=== PATIENT | female | born 1965 | race Caucasian/White ===

== ENCOUNTER → 2017-12-15 16:02 | Outpatient (CLI) | payer MEDICARE, MEDICAID | END | disposition home or self-care (01) | LOC: D.RAD 16:02 | DX: M25.512 Pain in left shoulder (principal) ==

== ENCOUNTER → 2017-12-22 13:43 | Outpatient (CLI) | payer MEDICARE | END | disposition home or self-care (01) | LOC: D.MRI 13:30 | DX: M25.512 Pain in left shoulder (principal) ==

== ENCOUNTER 2018-04-14 07:00 | Day surgery (SDC) | payer MEDICARE ==
[2018-04-13 14:48] LABS: HEMATOCRIT 41.6 % (36.0-48.0); HEMOGLOBIN 13.8 g/dL (12-16); MCH 32.2 pg (26.0-34.0); MCHC 33.2 g/dL (31.0-37.0); MCV 97.2 fL (80.0-100.0); MEAN PLATELET VOLUME 9.3 fL (7.4-10.4); RBC 4.28 10x6/uL (4.00-5.40); RDW 13.3 % (11.5-14.5); WBC 10.4 10x3/uL (4.8-10.8)
[~2018-04-14] VITALS: Ht 160 cm; Wt 63.5 kg
--- NOTE | ~2018-04-14 | OP ---
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 POSTOPERATIVE DIAGNOSES: Impingement syndrome of the right shoulder with acromioclavicular arthritis. PROCEDURES: 1. Right shoulder arthroscopy with arthroscopic distal clavicle excision done through separate incision -- 1 cm. 2. Arthroscopic subacromial decompression with acromioplasty and bursectomy. SURGEON: Beni Mishra MD ANESTHESIA: General. INTRAOPERATIVE COMPLICATIONS: None. SUMMARY OF PATHOLOGIC FINDINGS: The patient has moderate biceps tendinitis; however, the tendon itself was completely intact and I did not find a just cause to do a tenodesis or tenotomy. The patient did have excoriation of the undersurface of the acromion, thickening of the coracoacromial ligament as well as superficial attritional changes of the rotator cuff, no full-thickness tearing was noted. OPERATIVE SUMMARY IN DETAIL: After obtaining the appropriate preoperative orthopedic surgery consent as well as anesthetic consultation, evaluation and clearance, the patient was brought to the operating room and placed on the operating table in supine position. After adequate general laryngeal mask airway was administered, the patient was placed in a left lateral decubitus position. All pressure points well padded to include down leg peroneal pad as well as axillary roll. The patient was held firmly to the operating table using the vacuum pack suction system. Right upper extremity and shoulder were then prepped and draped in routine sterile fashion. The arm was held in the Arthrex traction boom at 30 degrees of forward flexion, 30 degrees of abduction with 10 pounds of traction laterally. Arthroscopy was established in the glenohumeral joint from posterior portal. Anterior portal was established in the anterior safe interval. Diagnostic arthroscopy did reveal the above findings of tendinitis. The bicipital labral junction was intact and the articular surfaces were smooth. No undersurface rotator cuff tearing was noted. Attention was then turned to the subacromial space. While in the subacromial space, the accessory lateral portal was created through which the [place] tissue ablation system was utilized to denude the undersurface of the acromion of all soft tissue elements and release the coracoacromial ligament. A 5-0 barrel bur was then used to perform acromioplasty at the level of acromioclavicular joint to change the type 3 anatomy to a type 1 anatomy. Lastly through an anterior arthroscopic portal, again under direct visualization 1 cm of the distal clavicle was excised. Having completed this, all bursa was taken down from the superficial aspect of the rotator cuff tear. One area had some attritional tearing; however, very superficial only. Having completed OPERATIVE REPORT [id number] ANALY DE LEON this, arthroscopy portals were closed in routine interrupted fashion using 4-0 Prolene. Sterile dressings were applied. The patient was awakened and taken to the recovery room in stable condition. All final needle and sponge counts were correct. TRANSINT:[id number] Voice Confirmation ID: [id number] DOCUMENT ID: [id number] DANICA ERICKSON, BENI ALEJO at 1418 CC: [id number] DICTATION DATE: 04/14/18 1233 RN MANAGED CARE: 04/14/18 1241 [facility] 04/14/18 [facility] [address] [place] [address]
[~2018-04-14 07:00] MED LIST: CYCLOBENZAPRINE10 MG PO; HYDROCO/APAP TAB 10- PO; LISINOPRIL5 MG PO; LITHIUM CARB CAP 300 PO; MORPHINE SULFAT15 M4 PO; NEURONTIN 300300 MG PO; NORVASC10 MG PO; PHENERGAN25 M1 PO; REQUIP0.25 MG PO; TRAZODONE TAB 50M; ZOLOFT100 MG PO
[2018-04-14 07:49] VITALS: BP 117/79; Ht 160 cm; Wt 63.5 kg
[2018-04-14] MEDS ORDERED: NORCO 10-325 TA1 TAB PO (09:43)
== END 2018-04-14 11:47 | disposition home or self-care (01) ==
LOC: D.OPS 07:00 → D.PAN 09:10 → D.OPS 09:15
PROVIDERS: Anesthesiology
DX: M75.41 Impingement syndrome of right shoulder (principal); M13.811 Other specified arthritis, right shoulder; I10 Essential (primary) hypertension; Z72.0 Tobacco use; Z01.812 Encounter for preprocedural laboratory examination

== ENCOUNTER → 2018-05-23 07:04 | Outpatient (CLI) | payer MEDICARE ==
[2018-04-14 07:49] VITALS: BMI 24.8
[~2018-05-23 07:04] MED LIST changes: +NORCO 10-325 TA1 TAB PO
== END | disposition home or self-care (01) ==
LOC: D.PT 07:04
DX: Z47.89 Encounter for other orthopedic aftercare (principal)

== ENCOUNTER 2018-07-22 08:00 | Outpatient (CLI) | payer MEDICARE ==
[2018-04-14 07:49] VITALS: BMI 24.8
== END 2018-07-22 09:00 | disposition home or self-care (01) ==
LOC: D.MAMMO 08:00
DX: Z12.31 Encounter for screening mammogram for malignant neoplasm of breast (principal)

== ENCOUNTER 2020-10-10 15:45 | Outpatient (CLI) | payer MEDICARE ==
[2018-04-14 07:49] VITALS: BMI 24.8
== END 2020-10-10 23:59 | disposition home or self-care (01) ==
LOC: D.MAMMO 15:45
PROVIDERS: ATTEND Emergency Medicine
DX: Z12.31 Encounter for screening mammogram for malignant neoplasm of breast (principal)